=== PATIENT | male | born 1950 | race Caucasian/White ===

== ENCOUNTER 2024-01-04 19:07 | Emergency (ER) | payer OTHER, SELFPAY ==
[2024-01-04 19:09] VITALS: BP 154/102
--- NOTE | 2024-01-04 20:40 | ED.GENMED ---
History of Present Illness
General
Chief Complaint: Fall
Source: patient and family
Exam Limitations: none
Time Seen by Provider: 01/04/24 20:32
Travel History
Have you had any contact with someone who has COVID-19?: No
Do you have any symptoms of coronavirus? Fever > 100 degrees, chills, cough, shortness of breath, sore throat, loss of taste or smell, muscle aches, or headache?: No
History of Present Illness
History of Present Illness:
See MDM
Past History
Past History
ED Past Medical History: Arrthythmia (A-fib), HTN, Hypercholesterolemia, NIDDM and Other (Diabetic neuropathy in legs)
ED Past Surgical History: Orthopedic and Other (Hernia, tonsils, craniotomy)
Social History
Tobacco: Non-smoker
Alcohol: Daily
Drug: None and Marijuana
Personal:
Living: with family
Employment: Retired
Family History
Family History: Other
Phy Exam
Physical Exam
Physical Exam:
See MDM
Course
Orders/Labs/Results
Orders:
Orders
01/04/24 19:[address] [CT Head W/o Iv Contrast] Urgent
Comment:
Reason For Exam: head injury
01/04/24 19:18
Cervical Spine wo Contrast CT [CT Cervical Spine W/o Iv Contr] Urgent
Comment:
Reason For Exam: fall
Vital Signs
Initial and Last Documented VS:
Initial Vital Signs
Temp Pulse Resp BP Pulse Ox
98.0 F 83 18 154/102 99
01/04/24 19:09 01/04/24 19:09 01/04/24 19:09 01/04/24 19:09 01/04/24 19:09
Last Documented Vital Signs
Temp Pulse Resp BP Pulse Ox
98.0 F 83 18 154/102 99
01/04/24 19:09 01/04/24 19:09 01/04/24 19:09 01/04/24 19:09 01/04/24 19:09
MDM/Problems Addressed
Differential Diagnosis Includes:
HPI and MDM Narrative:
73-year-old male presenting for fall. Patient states he lost his balance and fell backwards. He scraped his scalp. He is on Xarelto. He denies headache or neck pain. Patient ambulating with 2 canes and appears to be at baseline
CT head and neck negative. There is an abrasion to his scalp. I suggested having the scalp cleaned to assess for laceration but daughter states that she will perform wound care at home
Physical exam
General: Well appearing and non-toxic
HEENT: protecting airway. Right posterior scalp abrasion
Neck: supple
CV: No evidence of cyanosis
Resp: No accessory muscle use
Abd: Non-distended
Extremities: No deformities
Neuro: alert
Psych: Normal affect
Skin: Intact
Problems Addressed including Acute and Chronic Conditions affecting care:
1. Head injury
Acuity: acute
Prognosis: stable
Details: CT head and neck negative. Discussed wound care to scalp but daughter states she will take care of at home
Updates
Differential Diagnosis (but not limited to): Intracranial hemorrhage, scalp contusion, concussion
Testing considered: EKG
Drug therapy (if applicable): OTC meds, please see d/c instruction regarding Rx drugs
Amount and/or Complexity of Data Reviewed
Clinical info obtained from: Patient and daughter
External data reviewed: N/A
Labs I independently reviewed (but not limited to): N/A
Radiology: The CT scan was personally and independently reviewed. In addition, official CT report reviewed.
Pulse Ox: not hypoxic
EKG independently reviewed: N/A
Chief Radiologic Technologist: N/A
Critical Care: N/A
Risk of Complication:
Social Determinants of health: Good social support
Discussed with other providers: N/A
Escalation of Care includes Admit/Obs: After being observed in the Emergency Department, pt stable for discharge.
Occasional wrong word or 'sound a like' substitutions may have occurred due to the inherent limitations of voice recognition software. Read the chart carefully and recognize, using context, where substitutions have occurred.
*Critical Care Note
Total Time (30-74mins, 75-104mins- exclusive of procedures): Not Applicable
ED Attending Note
-
Portions of this chart may have been created with voice recognition software.� Occasional wrong word or��sound alike� substitutions may have occurred due to the inherent limitations of voice recognition software.
Discharge Plan
Departure
Patient Disposition: Home (Routine Discharge)
Date of Disposition: 01/04/24
Time of Disposition: 20:40
Patient with high blood pressure during this ER visit?: Yes
Discharge Problem:
Head injury
Instructions: Head Injury in Adults (DC), BLOOD PRESSURE
Prescriptions:
No Action
furosemide [Lasix] 40 MG tablet
20 mg PO DAILY
metformin [Glucophage] 500 MG tablet
500 mg PO BID
potassium chloride [Klor-Con M20] 20 MEQ tablet,ER particles/crystals
20 meq PO DAILY
lisinopril 5 MG tablet
5 mg PO DAILY
glipizide 5 MG tablet
10 mg PO BID
pyridoxine (vitamin B6) [Neuro-K] 50 MG tablet
50 mg PO DAILY
allopurinol 300 MG tablet
300 mg PO DAILY
multivitamin [Daily Multiple] 1 EACH tablet
1 ea PO DAILY
duloxetine 60 MG capsule,delayed release(DR/EC)
60 mg PO DAILY
rivaroxaban [Xarelto] 10 MG tablet
20 mg PO DAILY
ibuprofen 800 MG tablet
800 mg PO Q8H PRN (Reason: pain)
Activity Restrictions/Additional Instructions:
Please return for any worsening symptoms.
You may return at any time if you have further concerns.
Please follow up with your doctor at the first available appointment, preferably this week.
Thank you for choosing [facility].
Interventions
Interventions:
*Risk Screen - Suicide Last Done: 01/04/24 19:09
*General Assessment Last Done: 01/04/24 19:09
*Neglect/Abuse Screening Last Done: 01/04/24 19:09
*ED COVID-19 Vaccine History Last Done: 01/04/24 19:09
[2024-01-04 21:28] VITALS: BP 100/64
== END 2024-01-04 21:29 | disposition home or self-care (01) ==
LOC: EMR 19:07
PROVIDERS: EMERGENCY PHYSICIAN Student in an Organized Health Care Education/Training Program; FAMILY PHYSICIAN Family Medicine
DX: S09.90XA Unspecified injury of head, initial encounter (principal); W18.39XA Other fall on same level, initial encounter; Z79.01 Long term (current) use of anticoagulants; E11.40 Type 2 diabetes mellitus with diabetic neuropathy, unspecified; I10 Essential (primary) hypertension; I48.91 Unspecified atrial fibrillation
CPT/HCPCS: 99284; 70450; 72125

== ENCOUNTER → 2024-12-27 12:24 | Outpatient (REF) | payer OTHER, SELFPAY | LOC: HWRAD 12:24 | PROVIDERS: ATTENDING PHYSICIAN Family Medicine | DX: Z86.39 Personal history of other endocrine, nutritional and metabolic disease (principal) | CPT/HCPCS: 76536 ==

== ENCOUNTER → 2025-03-07 09:55 | Outpatient (REF) | payer OTHER, SELFPAY ==
--- NOTE | 2025-03-07 14:54 | CARDSERVDEF ---
Echocardiogram with Definity completed after protocol screening completed. Allergies verified.
Patent IV site: _Left antecubital 22 G PC ____
IV site flushed with 0.9% NaCl pre and post administration.
Diluted bolus method utilized to enhance visualization of ventricular jacobs.
Total volume given: _5.5___ mL
Patient tolerated all procedures well without complications.
Heplock D/C ed at 1450, site clear, no redness, no edema. Pressure held for few minutes as pt on anticoagulants, no bleeding. 2x2 applied and taped. Pt offers no complaints.
== END ==
LOC: RCS 09:55
PROVIDERS: ATTENDING PHYSICIAN Internal Medicine Cardiovascular Disease; FAMILY PHYSICIAN Family Medicine
DX: I48.21 Permanent atrial fibrillation (principal)
CPT/HCPCS: 93306; Q9957

== ENCOUNTER 2025-04-15 11:43 | Emergency (ER) | payer OTHER, SELFPAY ==
[2025-04-15] VITALS (7 sets, daily range): BP systolic 108–135; BP diastolic 65–89; BMI 35.3
--- NOTE | 2025-04-15 12:01 | ED.MUSCINJ ---
HPI-Injury
<Lissette Arboleda ADJUNCT INSTRUCTOR - Last Filed: 04/15/25 18:48>
General
Chief Complaint: Fall
Source: patient and spouse
Exam Limitations: none
Time Seen by Provider: 04/15/25 11:50
Nursing documentation reviewed up to this point in time: agreed with
History of Present Illness-Injury
Initial Injury comments:
75 yo male w h/o afib on Xarelto, HTN, NIDDM, severe arthritis both knees, neuropathy both LE's, legs give out frequently with frequent falls. states 3 years ago he was given his 'last chance' for knee replacements and he refused, now pt states
'I can't have them done as I'm now a surgical risk.' Uses canes and walker, frequently falls and catches himself on jacobs or furniture per .
Pt fell 2 evenings ago when his knees gave out. He landed on his back, struck forehead on night stand. Next morning he complained of left side back and chest pain that has been worsening and becoming more short of breath.
Past History
<Lissette Arboleda ADJUNCT INSTRUCTOR - Last Filed: 04/15/25 18:48>
Past History
ED Past Medical History: Arrthythmia (A-fib), HTN, Hypercholesterolemia, NIDDM and Other (Diabetic neuropathy in legs)
ED Past Surgical History: Orthopedic and Other (Hernia, tonsils, craniotomy)
Social History
Tobacco: Non-smoker
Alcohol: Daily
Drug: None and Marijuana
Personal:
Living: with family
Employment: Retired
Family History
Family History: Other
Review of Systems
<Lissette Arboleda, ADJUNCT INSTRUCTOR - Last Filed: 04/15/25 18:48>
Review of Systems
Allergies reviewed?: Yes
All Other Systems: ROS reviewed and negative except as documented in HPI and ROS
Respiratory: Reports trouble breathing; Denies hemoptysis
Musculoskeletal: Reports back pain (pain left rib cage anterior and posterior) and other (legs gave out); Denies neck pain
Neurological: Denies dizzy or headache
Phy Exam
<Lissette Arboleda ADJUNCT INSTRUCTOR - Last Filed: 04/15/25 18:48>
Physical Exam
Physical Exam:
GENERAL: Mild distress due to pain left ribs. A&Ox3.
CONSTITUTIONAL: Afebrile.
EYES: clear, conjunctivae normal
ENMT: moist mucus membranes, Pharynx nl
RESPIRATORY: Regular respirations, nonlabored, R lung clear, L lung with friction rub.
CARDIOVASCULAR: Irregular, rate controlled, no murmurs, no rubs.
GI: Soft, nontender, normal BS
MUSCULOSKELETAL: Tender left mid to upper ribs. Moves with ease. Well perfused.
SKIN: Warm, dry, pink. Blotchy erythema skin of left side from heating pad.
PSYCH: Normal mood and affect. Well kept, interactive and appropriate
NEUROLOGIC: Awake, alert and oriented. No focal neurological deficits
Injury Course
<Lissette Arboleda, ADJUNCT INSTRUCTOR - Last Filed: 04/15/25 18:48>
Orders/Labs/Results
Orders:
Orders
04/15/25
Electrocardiogram (*1) Stat
Other Reason for Exam: CP
Comment: DONE
04/15/25 11:59
CR Ribs-left 3 Vw W/pa Chest Urgent
Comment:
Reason For Exam: SOB, pain after fall.
04/15/25 12:00
HYDROmorphone [Dilaudid] 1 mg IV NOW STA
Ondansetron Injectable [Zofran] 4 mg IV NOW STA
04/15/25 12:09
Complete Blood Count/With Diff Urgent
Comprehensive Metabolic Panel Urgent
04/15/25 13:28
CT Head W/o Iv Contrast Urgent
Comment:
Reason For Exam: fall hit forehead on Xarelto
04/15/25 13:29
CT Chest/abd/pel W Iv Cont Urgent
Comment:
Reason For Exam: mult rib fx, hit head, trauma transfer
04/15/25 13:31
CT Cervical Spine W/o Iv Contr Urgent
Comment:
Reason For Exam: fall on AC
04/15/25 15:17
HYDROmorphone [Dilaudid] 0.5 mg IV NOW STA
Abnormal Lab Results
04/15/25
12:09
MCV 94.9 H fL
(80.0-94.0)
MCH 31.5 H pg
(27.0-31.0)
MPV 11.0 H fL
(7.4-10.4)
Abs Immat Gran (auto) 0.1 H 10^3/uL
(0-0.05)
Absolute Neuts (auto) 6.6 H 10^3/uL
(1.4-6.5)
Absolute Monos (auto) 0.7 H 10^3/uL
(0.1-0.6)
Immature Gran % 0.6 H %
(0-0.5)
Lymphocytes % 15.5 L %
(20.5-51.1)
Creatinine 0.5 L mg/dL
(0.7-1.3)
Glucose 145 H mg/dl
(70-99)
04/15/25 12:09
04/15/25 12:09
Developmental Education Instructor consulted with Physician
Developmental Education Instructor consulted with physician?: Yes
Name of Physician Consulted: Aric
<Brennan Corbett MD - Last Filed: 04/15/25 13:55>
Orders/Labs/Results
Orders:
Orders
04/15/25
Electrocardiogram (*1) Stat
Other Reason for Exam: CP
Comment: DONE
04/15/25 11:59
CR Ribs-left 3 Vw W/pa Chest Urgent
Comment:
Reason For Exam: SOB, pain after fall.
04/15/25 12:00
HYDROmorphone [Dilaudid] 1 mg IV NOW STA
Ondansetron Injectable [Zofran] 4 mg IV NOW STA
04/15/25 12:09
Complete Blood Count/With Diff Urgent
Comprehensive Metabolic Panel Urgent
04/15/25 13:28
CT Head W/o Iv Contrast Urgent
Comment:
Reason For Exam: fall hit forehead on Xarelto
04/15/25 13:29
CT Chest/abd/pel W Iv Cont Urgent
Comment:
Reason For Exam: mult rib fx, hit head, trauma transfer
04/15/25 13:31
CT Cervical Spine W/o Iv Contr Urgent
Comment:
Reason For Exam: fall on AC
04/15/25 15:17
HYDROmorphone [Dilaudid] 0.5 mg IV NOW STA
Abnormal Lab Results
04/15/25
12:09
MCV 94.9 H fL
(80.0-94.0)
MCH 31.5 H pg
(27.0-31.0)
MPV 11.0 H fL
(7.4-10.4)
Abs Immat Gran (auto) 0.1 H 10^3/uL
(0-0.05)
Absolute Neuts (auto) 6.6 H 10^3/uL
(1.4-6.5)
Absolute Monos (auto) 0.7 H 10^3/uL
(0.1-0.6)
Immature Gran % 0.6 H %
(0-0.5)
Lymphocytes % 15.5 L %
(20.5-51.1)
Creatinine 0.5 L mg/dL
(0.7-1.3)
Glucose 145 H mg/dl
(70-99)
04/15/25 12:09
04/15/25 12:09
<Lissette Arboleda ADJUNCT INSTRUCTOR - Last Filed: 04/15/25 18:48>
MDM/Problems Addressed
Differential Diagnosis Includes:
rib fracture, hemo/pneumo thorax
MDM/Problems Addressed:
75 yo male w h/o afib on Xarelto, HTN, NIDDM, severe arthritis both knees, neuropathy both LE's, legs give out frequently with frequent falls. states 3 years ago he was given his 'last chance' for knee replacements and he refused, now pt
states 'I can't have them done as I'm now a surgical risk.' Uses canes and walker, frequently falls and catches himself on jacobs or furniture per .
Pt fell 2 evenings ago when his knees gave out. He landed on his back, struck forehead on night stand. Next morning he complained of left side back and chest pain that has been worsening and becoming more short of breath.
12:45 PM:
CBC, CMP with no clinically significant abnormality
After Dilaudid, pulse ox 89% Placed on 2L NC. Pain now 2/10 from 8/10
Rib xray: multiple rib fractures.
1:20 p.m.
Radiology read: IMPRESSION:
1. ACUTE NONDISPLACED FRACTURES of the left lateral 4th, 5th, 6th, 7th, and 8th ribs.
2. No radiographic evidence for pneumothorax.
3. Moderate chronic elevation of the left hemidiaphragm with adjacent compressive subsegmental atelectasis and scarring in the left lower lobe.
4. Moderate cardiomegaly.
5. Mild left to right mediastinal shift.
Dr. Corbett consulted and into evaluate patient
Patient will be sierra scanned and transferred to a trauma center.
Patient and informed and all questions answered.
Patient states the pain is 'not too bad' at this time and remained stable.
Dr. Corbett made arrangements have patient transferred to [facility], he spoke with the accepting physician.
All radiology reports reviewed:
CT cervical spine shows no acute abnormality
CT head shows no evidence of acute intracranial hemorrhage
CT chest abdomen/pelvis: Acute nondisplaced fracture of the left lateral fourth, fifth, sixth, seventh, eighth, ninth ribs.
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 Given copy of report.
3:15 p.m.
Pt remains stable for transfer.
<Lissette Arboleda NP - Last Filed: 04/15/25 18:48>
*Radiology
Radiology exam reviewed: preliminary read by ED provider (multiple rib fx: 6-7-8-9?)
*EKG
EKG Intrepretation Date: 04/15/25
Interpretation: abnormal
Heart Rate: 63
Rate: normal
Rhythm: a-fib
[place]: normal axis
QRS Pattern: normal QRS
Ischemia: no ischemia
*Critical Care Note
Total Time (30-74mins, 75-104mins- exclusive of procedures): Not Applicable
ED Attending Note
<Lissette Arboleda NP - Last Filed: 04/15/25 18:48>
-
Portions of this chart may have been created with voice recognition software.� Occasional wrong word or��sound alike� substitutions may have occurred due to the inherent limitations of voice recognition software.
<Brennan Corbett MD - Last Filed: 04/15/25 13:55>
ED Attending Note
Patient seen and examined by attending physician: Yes
ED Attending Note:
I have seen and evaluated the patient with a [id number] encounter. I have spoken to the advance practicer provider and involved in the medical history, the physical exam, medical decision making.
Evaluation and management service: agree unless noted differently below.
Results interpretation: agree unless noted differently below.
Focused HPI: 75-year-old male with history as noted significant for A-fib on Eliquis who presents to the emergency room for evaluation of left chest pain after a fall. Patient says that Friday evening he lost his balance and fell backwards
landing on his left side. He did have head strike, no loss of consciousness. He has had pain in his left ribs since then. He says pain is much worse with movement and with breathing and he was having trouble breathing due to the pain which
prompted ER visit. He denies any headache or neck pain. He denies any pain in his extremities. He denies any abdominal pain. He has not had any nausea or vomiting.
Physical exam: Awake and alert, oriented x 3. GCS 15. No signs of acute head trauma. No tenderness in the cervical spine. He has some bruising in the left upper arm as well as in the left chest wall. He has significant tenderness mid axillary
to posterior axillary region on the left side. No crepitus. He has no midline tenderness in the thoracic or lumbar spine. Abdomen nontender with no bruising. Although he has some bruising in the left upper arm he has no tenderness and moves his
left upper extremity through full range of motion of the shoulder and elbow. Lower extremities are atraumatic.
Medical Decision Makin-year-old male presents after fall complaining of left rib pain. Primary survey intact. Secondary survey as noted. He had basic lab work sent including a CBC and a CMP which showed no clinically significant
abnormalities. He was sent initially for x-ray of the chest and ribs which showed multiple rib fractures on the left. No pneumothorax or hemothorax noted. Given significant injuries seen on x-ray he was sent for a CT of the head, cervical spine,
chest/abdomen/pelvis. CT head and cervical spine negative on my initial review radiology report pending. Rib fractures noted on CT, final report pending. Case was discussed with trauma attending at [facility] Dr. Lafleur and patient was
accepted for transfer.
Discharge Plan
Departure
Patient Disposition: [facility]
Date of Disposition: 04/15/25
Time of Disposition: 15:20
Condition: Fair
Discharge Problem:
Fall from slip, trip, or stumble, Multiple fractures of ribs of left side
Prescriptions:
No Action
furosemide [Lasix] 40 MG tablet
20 mg PO DAILY
potassium chloride [Klor-Con M20] 20 MEQ tablet,ER particles/crystals
20 meq PO DAILY
lisinopril 5 MG tablet
5 mg PO DAILY
allopurinol 300 MG tablet
300 mg PO DAILY
duloxetine 60 MG capsule,delayed release(DR/EC)
60 mg PO DAILY
metformin 500 mg Tablet
500 mg PO BID
atorvastatin 20 mg Tablet
10 mg PO DAILY
glipizide 10 mg Tablet
10 mg PO DAILY
Theragen Tablet
1 tab PO DAILY
metoprolol tartrate 50 mg Tablet
50 mg PO BID
pyridoxine (vitamin B6) 50 mg Tablet
50 mg PO DAILY
fluticasone propionate 50 mcg/actuation Treece,Suspension
2 spray INTRANASAL DAILY
loratadine 10 mg Tablet
10 mg PO DAILY
pregabalin 50 mg Capsule
50 mg PO DAILY
Xarelto 20 mg Tablet
20 mg PO DAILY
Referrals:
Nestor Muller DO [Family Provider] -
Hospital Transfer
Other hospital: [place]
I certify that the patient requires transfer: Yes
Discussed case with accepting physician: Dr. Lafleur
Reason for transfer: specialties available
Interventions
Interventions:
*Risk Screen - Suicide Last Done: 04/15/25 11:45
*General Assessment Last Done: 04/15/25 12:53
*Neglect/Abuse Screening Last Done: 04/15/25 11:45
*ED- Fall Risk Assessment Last Done: 04/15/25 12:21
*ED COVID-19 Vaccine History Last Done: 04/15/25 12:53
*Nursing Disposition Last Done: 04/15/25 15:29
ED-Musculoskeletal Assessment Last Done: 04/15/25 12:21
ED- Neurological Assessment Last Done: 04/15/25 12:21
ED-Skin Assessment Last Done: 04/15/25 12:21
Discharge Date and Time
Discharge Date/Time: 04/15/25 15:34
Print Language: [place]
[2025-04-15] MEDS: DILAUDID 1 MG IV (12:12)
[2025-04-15] MEDS: ZOFRAN 4 MG IV (12:12)
[2025-04-15 12:16] LABS: % Basophils 0.6 % (0-2); % Eosinophils 0.6 % (0-6); % Immature Granulocytes 0.6 % (0-0.5); % Lymphocytes 15.5 % (20.5-51.1); % Neutrophils 74.7 % (42.2-75.2); Absolute Basophils 0.1 10^3/uL (0-0.2); Absolute Eosinophils 0.1 10^3/uL (0-0.7); Absolute Immature Granulocytes 0.1 10^3/uL (0-0.05); Absolute Lymphocytes 1.4 10^3/uL (1.2-3.4); Absolute Monocytes 0.7 10^3/uL (0.1-0.6); Absolute Neutrophils 6.6 10^3/uL (1.4-6.5); Hemoglobin 15.6 g/dL (13.0-18.0); Mean Corp Hgb Conc. 33.2 g/dL (33.0-37.0); Mean Corpuscular Hgb 31.5 pg (27.0-31.0); Mean Corpuscular Volume 94.9 fL (80.0-94.0); Nucleated Red Blood Cells % 0 % (-); Platelet Count 199 10^3/uL (130-400); Red Blood Cell Count 4.95 10^6/uL (4.70-6.10); Red Cell Dist. Width 14.5 % (11.5-14.5); White Blood Cell Count 8.8 10^3/uL (4.8-10.8)
[2025-04-15 12:43] LABS: ALT (SGPT) 26 U/L (0-50); AST (SGOT) 32 U/L (17-59); Albumin 4.5 g/dl (3.5-5.0); Alkaline Phosphatase 87 U/L (38-126); Blood Urea Nitrogen 15 mg/dl (9-20); Calcium 9.6 mg/dl (8.4-10.2); Carbon Dioxide 30 mmol/L (22-30); Chloride 107 mmol/L (98-107); Estimated Creatinine Clearance > 125 ml/min; Glucose 145 mg/dl (70-99); Potassium 4.1 mmol/L (3.5-5.1); Sodium 143 mmol/L (135-145); Total Bilirubin 1.3 mg/dl (0.2-1.3); Total Protein 7.4 g/dl (6.3-8.2); eGFR > 60.00
[2025-04-15] MEDS: DILAUDID 0.5 MG IV (15:24)
== END 2025-04-15 15:34 | disposition short-term general hospital (02) ==
LOC: EMR 11:43
PROVIDERS: Registered Nurse; EMERGENCY PHYSICIAN Emergency Medicine; FAMILY PHYSICIAN Family Medicine
DX: S22.42XA Multiple fractures of ribs, left side, initial encounter for closed fracture (principal); R07.9 Chest pain, unspecified; W01.198A Fall on same level from slipping, tripping and stumbling with subsequent striking against other object, initial encounter; Z91.81 History of falling; I10 Essential (primary) hypertension; E11.40 Type 2 diabetes mellitus with diabetic neuropathy, unspecified; E78.00 Pure hypercholesterolemia, unspecified; I48.91 Unspecified atrial fibrillation
CPT/HCPCS: 96374; 96375; 96361; 99284; 70450; 71101; 71260; 72125; 74177; 80053; 85025; 93005; Q9967

== ENCOUNTER → 2025-04-25 16:09 | Outpatient (REF) | payer OTHER, SELFPAY | LOC: RAD 16:09 | PROVIDERS: ATTENDING PHYSICIAN Family Medicine | DX: S09.92XA Unspecified injury of nose, initial encounter (principal) | CPT/HCPCS: 70150 ==

== ENCOUNTER → 2025-05-30 11:35 | Outpatient (REF) | payer OTHER, SELFPAY | LOC: RAD 11:35 | PROVIDERS: ATTENDING PHYSICIAN Family Medicine | DX: K86.2 Cyst of pancreas (principal) | CPT/HCPCS: 74170; Q9967 ==

== ENCOUNTER → 2025-06-01 14:29 | Outpatient (REF) | payer OTHER, SELFPAY | LOC: HWRAD 14:29 | PROVIDERS: ATTENDING PHYSICIAN Family Medicine | DX: S22.42XD Multiple fractures of ribs, left side, subsequent encounter for fracture with routine healing (principal); R29.6 Repeated falls; Z13.820 Encounter for screening for osteoporosis | CPT/HCPCS: 77080 ==